=== PATIENT | male | born 1990 | race Caucasian/White ===

== ENCOUNTER 2022-06-06 19:09 | Emergency (ER) | payer OTHER ==
[~2022-06-06] VITALS: Ht 182.9 cm; Wt 108.9 kg
[2022-06-06 19:14] VITALS: BP 149/80
--- NOTE | 2022-06-06 20:03 | NUR ---
PATIENT LEFT WITHOUT BEING SEEN BY DR. ARUSCH. NO FURTHER CARE PROVIDED FOR PATIENT.
== END 2022-06-06 20:03 | disposition left against medical advice (07) ==
LOC: MED 19:09
DX: H57.10 Ocular pain, unspecified eye (principal); Z53.21 Procedure and treatment not carried out due to patient leaving prior to being seen by health care provider